=== PATIENT | male | born 1990 | race Caucasian/White ===

== ENCOUNTER 2018-05-24 15:05 | Emergency (ER) | payer SELFPAY ==
[2018-05-24 16:18] LABS: Bilirubin Negative (Negative); Blood, Urine Negative (Negative); Clarity CLEAR (Clear); Glucose, Urine (Dipstick) Negative (Negative); Leukocyte Negative (Negative); Nitrite Negative (Negative); Protein, Urine (Dipstick) Negative (Neg-Trace); Specific Gravity, Urine 1.026 (1.002-1.036); pH, Urine 5.5 (5.0-9.0)
[2018-05-24] MEDS ORDERED: Ketorolac Tromethamine 30 MG/ML VIAL ONE (17:19)
--- NOTE | 2018-05-24 17:49 | CT ---
FExam: CT abdomen and pelvis without contrast Provided clinical history: Right flank pain FINDINGS: The visualized lung bases are free of significant opacity. There is diffuse fatty infiltration of the liver. The solid abdominal organs are suboptimally evaluat ed in the absence of IV contrast material demonstrate an otherwise unremarkable unenhanced CT appeara nce. No evidence for urinary tract calculi or hydronephrosis. No bowel dilatation, inflammatory fat stranding, free fluid or free air apparent. Changes of prior ap pendectomy are seen. 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 The osseous structures demonstrate no concerning lytic or blastic lesions. Bone islands are seen invo lving the pelvis. IMPRESSION: 1. No evidence for urinary tract calculi or hydronephrosis. 2. Fatty infiltration of the liver. 3. 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 Correlate with the p hysical exam.
== END 2018-05-24 18:14 | disposition home or self-care (01) ==
LOC: ERS 15:05
DX: S39.012A Strain of muscle, fascia and tendon of lower back, initial encounter (principal); F90.9 Attention-deficit hyperactivity disorder, unspecified type; X58.XXXA Exposure to other specified factors, initial encounter
CPT/HCPCS: 74176; 81003; J1885